=== PATIENT | male | born 1970 | race Caucasian/White ===

== ENCOUNTER 2019-05-11 19:07 | Emergency (ER) | payer SELFPAY ==
[~2019-05-11] VITALS: Ht 195.6 cm; Wt 117.9 kg
[2019-05-12] MEDS ORDERED: DEXTROSE 50% SYRINGE 50 ML IV ONE (10:34)
== END 2019-05-11 20:00 | disposition short-term general hospital (02) ==
LOC: ER 19:07
DX: R09.89 Other specified symptoms and signs involving the circulatory and respiratory systems (principal)

== ENCOUNTER → 2019-09-04 | Day surgery (SDC) | payer OTHER ==
[~2019-09-04] MED LIST: FENTANYL CITRATE/PF 100MCG/2 ML INJ ONE; LIDOCAINE HCL 2% LOCAL INJ 5 ML SDV VIAL INJ ONE; MIDAZOLAM HCL 2 MG/2 ML VIAL ONE; MULTI-VITAMIN1 EACH; OMEPRAZOLE40 MG; PROPOFOL IV EMULSION 10 MG/ML 50 ML VIAL ONE
[2019-09-04 14:00] VITALS: BP 117/83
--- NOTE | 2019-09-04 20:34 | Operative Report ---
DATE OF PROCEDURE: 09/04/2019 SURGEON: Aurelio Mcdonald MD PROCEDURE: An EGD with esophageal dilatation and biopsies. INDICATIONS FOR PROCEDURE: Acid reflux, dysphagia to solids. MEDICATIONS: The patient was done under MAC, please see anesthesiologist's note. PROCEDURE IN DETAIL: With the patient in left lateral decubitus position, a flexible fiberoptic Olympus gastroscope was introduced into the esophagus under direct visualization without any difficulty. There was some patchy erythema noted in distal esophagus. There were some concentric rings noted in the esophagus stricture suspicious for eosinophilic esophagitis. A mild stricture was noted at the GE junction that was dilated to size 52-[place]. The scope was then advanced with ease into the stomach. Mucosa overlying the antrum and the body revealed some patchy erythema and [id number] edema, and biopsies were obtained, sent to stain for H pylori. Pylorus was of normal contour and shape, was intubated with ease and the scope was advanced all the way to the second portion of the duodenum. The scope was then withdrawn slowly, mucosa overlying the proximal second portion and the duodenal bulb appeared to be within normal limits. The scope was then withdrawn back into the stomach and retroflexed mucosa overlying the fundus and cardia appeared to be within normal limits. The scope was then straightened out, it was subsequently withdrawn. Biopsies from the esophagus were obtained on the way out to rule out EOE. IMPRESSION: 1. Esophageal stricture gastroesophageal junction dilated to size 52-[place] Long. 2. Rule out eosinophilic esophagitis. 3. Gastritis, biopsied. Biopsies sent to stain for Helicobacter pylori. PLAN: Followup histology. Initiate Protonix 40 mg 1 p.o. q.a.m. a.c. Aurelio Mcdonald MD [facility] [place]/[facility] /[id number]
== END | disposition home or self-care (01) ==
LOC: OR 09:21
PROVIDERS: ATTEND Internal Medicine Gastroenterology
DX: K29.50 Unspecified chronic gastritis without bleeding (principal); K21.0 Gastro-esophageal reflux disease with esophagitis; K22.2 Esophageal obstruction; Z68.41 Body mass index [BMI] 40.0-44.9, adult; Z01.810 Encounter for preprocedural cardiovascular examination
CPT/HCPCS: 43239; 43450; 93005; J2001; J2250; J2704; J3010